=== PATIENT | female | born 1995 ===

== ENCOUNTER 2020-06-05 01:27 | Emergency (ER) | payer OTHER ==
[2020-06-05] MEDS ORDERED: Tetracaine HCl/PF 0.5% 4 ML Bottle EYERT ONE (01:28)
[2020-06-05] MEDS ORDERED: Balanced Salt Solution Ophth Irrig 30 ML Bottle EYERT ONE (01:35)
--- NOTE | 2020-06-05 01:42 | EDM.PDOC ---
ED HPI GENERAL MEDICAL PROBLEM - General Chief Complaint: Eye Problems Stated Complaint: RIGHT EYE FOREIGN OBJECT Time Seen by Provider: 06/05/20 01:28 Source of Information: Reports: Patient History Limitations: Reports: No Limitations - History of Present Illness INITIAL COMMENTS - FREE TEXT/NARRATIVE: Pt with unknown foreign body in right eye Did try to irrigate it out Unknown type of foreign body Occurred about an hour ago Onset: Today, Sudden Duration: Hour(s): Location: Reports: Other (Right eye) Quality: Reports: Stabbing Severity: Moderate Right Eye Pain Score (Numeric/FACES): 10 - Related Data Allergies Allergy/AdvReac Type Severity Reaction Status Date / Time No Known Allergies Allergy Verified 06/05/20 01:35 Home Meds: Home Meds Iron 18 mg PO DAILY 06/05/20 [History] ED ROS GENERAL - Review of Systems Review Of Systems: See Below HEENT: Reports: Eye Pain ED EXAM GENERAL W FULL EYE - Physical Exam Exam: See Below General Appearance: Alert, WD/WN, Moderate Distress Eye Exam: Bilateral Eye: EOMI, PERRL Eyelids: Bilateral: Normal Appearance Conjunctiva & Sclera: Bilateral: Normal Appearance Cornea Exam: Right: Examined with Flourescein (Corneal abrasion at 6 o'clock position) Extraocular Movements: Bilateral: Intact Pupils: Normal Accommodation Pupillary Size: Bilateral: 4 mm Pupillary Reaction: Bilateral: Brisk Course - Vital Signs Last Recorded V/S: Last Vital Signs Temp 99 F 06/05/20 01:27 Pulse 80 06/05/20 01:27 Resp 20 06/05/20 01:27 BP 114/77 06/05/20 01:27 Pulse Ox 100 06/05/20 01:27 - Orders/Labs/Meds Meds: Medications Discontinued Medications Generic Name Dose Route Start Last Admin Trade Name Freq PRN Reason Stop Dose Admin Balanced Salt Solution 5 ml 06/05/20 01:35 Eye Stream Eye Rinse EYERT 06/05/20 01:36 ONETIME ONE Tetracaine HCl 0.5 ml 06/05/20 01:28 Tetracaine 0.5% Steri-Unit Mary EYERT 06/05/20 01:29 ASDIRECTED ONE - Re-Assessments/Exams Free Text/Narrative Re-Assessment/Exam: 06/05/20 01:40 Pt eye seen with eye stain and black light Eye irrigated Rx Gentoptic eye drops 2 drops every 4 hours to right eye for 3 days Departure - Departure Time of Disposition: 01:45 Disposition: Home, Self-Care 01 Clinical Impression: Corneal abrasion Qualifiers: Encounter type: initial encounter Laterality: right Qualified Code(s): S05.01XA - Injury of conjunctiva and corneal abrasion without foreign body, right eye, initial encounter - Discharge Information *PRESCRIPTION DRUG MONITORING PROGRAM REVIEWED*: Not Applicable *COPY OF PRESCRIPTION DRUG MONITORING REPORT IN PATIENT SARAH: Not Applicable Instructions: Corneal Abrasion Additional Instructions: Rx Gent eye drops 2 drops every 4 hours for 3 days Follow up in clinic Sepsis Event Note (ED) - Evaluation Sepsis Screening Result: No Definite Risk - Focused Exam Vital Signs: Vital Signs Temp Pulse Resp BP Pulse Ox 06/05/20 01:27 99 F 80 20 114/77 100
== END 2020-06-05 01:56 | disposition home or self-care (01) ==
LOC: LL.ED 01:27
DX: S05.01XA Injury of conjunctiva and corneal abrasion without foreign body, right eye, initial encounter (principal); X58.XXXA Exposure to other specified factors, initial encounter
CPT/HCPCS: 99283

== ENCOUNTER 2020-09-19 02:33 | Emergency (ER) | payer BC, MEDICAID ==
[2020-09-19 03:23] LABS: CHLORIDE,CL 106 mmol/L (98-107); SODIUM,NA 139 mmol/L (136-145)
--- NOTE | 2020-09-19 03:36 | EDM.PDOC ---
ED HPI GENERAL MEDICAL PROBLEM - General Chief Complaint: General Stated Complaint: DIZZINESS, LIGHTHEADED Time Seen by Provider: 09/19/20 02:45 Source of Information: Reports: Patient History Limitations: Reports: No Limitations - History of Present Illness INITIAL COMMENTS - FREE TEXT/NARRATIVE: Pt complains of being lightheaded and dizzy earlier tonight at work No chest pain No syncope Symptoms resolved spontaneously Onset: Today, Sudden Duration: Resolved Prior to Arrival Location: Reports: Generalized - Related Data Allergies Allergy/AdvReac Type Severity Reaction Status Date / Time No Known Allergies Allergy Verified 06/05/20 01:35 Home Meds: Home Meds Ferrous Sulfate 1 tab PO BID 09/19/20 [History] ED ROS GENERAL - Review of Systems Review Of Systems: See Below Constitutional: Reports: No Symptoms HEENT: Reports: No Symptoms Respiratory: Reports: No Symptoms Cardiovascular: Reports: No Symptoms GI/Abdominal: Reports: No Symptoms Musculoskeletal: Reports: No Symptoms Skin: Reports: No Symptoms Neurological: Reports: Dizziness, Other (Lightheaded) Psychiatric: Reports: No Symptoms ED EXAM, GENERAL - Physical Exam Exam: See Below Exam Limited By: No Limitations General Appearance: Alert, WD/WN, No Apparent Distress Eye Exam: Bilateral Eye: EOMI, PERRL Throat/Mouth: Normal Oropharynx Neck: Supple Respiratory/Chest: Lungs Clear Cardiovascular: Regular Rate, Rhythm GI/Abdominal: Soft, Non-Tender Extremities: Normal Inspection Neurological: Alert, Oriented, Normal Cognition, Normal Gait, No Motor/Sensory Deficits Psychiatric: Normal Affect, Normal Mood Course - Vital Signs Last Recorded V/S: Last Vital Signs Temp 98.6 F 09/19/20 02:37 Pulse 63 09/19/20 02:37 Resp 14 09/19/20 02:37 BP 119/59 L 09/19/20 02:37 Pulse Ox 100 09/19/20 02:37 - Orders/Labs/Meds Labs: Laboratory Tests 09/19/20 09/19/20 Range/Units 03:00 03:00 WBC 5.2 (4.0-10.2) K/uL RBC 3.66 L (3.77-5.09) M/uL Hgb 9.3 L (11.7-15.5) g/dL Hct 28.9 L (34.0-46.0) % MCV 79.0 L (84.0-98.0) fL MCH 25.4 L (28.2-33.3) pg MCHC 32.2 (31.7-36.0) g/dL RDW 17.1 H (11.2-14.1) % Plt Count 233 (150-350) K/uL Neut % (Auto) 40.4 L (45.0-80.0) % Lymph % (Auto) 46.6 (10.0-50.0) % Ellis % (Auto) 10.7 (2.0-14.0) % Eos % (Auto) 1.9 (0.0-5.0) % Baso % (Auto) 0.4 (0.0-2.0) % Neut # (Auto) 2.12 (1.40-7.00) K/uL Lymph # (Auto) 2.44 (0.50-3.50) K/uL Ellis # (Auto) 0.56 (0.00-1.00) K/uL Eos # (Auto) 0.10 (0.00-0.50) K/uL Baso # (Auto) 0.02 (0.00-0.20) K/uL Sodium 139 (136-145) mmol/L Potassium 3.8 (3.5-5.1) mmol/L Chloride 106 (98-107) mmol/L Carbon Dioxide 22.7 (21.0-32.0) mmol/L BUN 13 (7-18) mg/dL Creatinine 0.58 (0.51-1.17) mg/dL Est Cr Clr Drug Dosing 130.27 mL/min Estimated GFR (MDRD) > 60 mL/min Glucose 90 (74-106) mg/dL Calcium 8.6 (8.5-10.1) mg/dL - Re-Assessments/Exams Free Text/Narrative Re-Assessment/Exam: 09/19/20 03:35 See lab Pt stable in ER Departure - Departure Time of Disposition: 03:45 Disposition: Home, Self-Care 01 Clinical Impression: Dizziness - Discharge Information *PRESCRIPTION DRUG MONITORING PROGRAM REVIEWED*: Not Applicable *COPY OF PRESCRIPTION DRUG MONITORING REPORT IN PATIENT SARAH: Not Applicable Instructions: Dizziness, [id number] Referrals: PCP,None [Primary Care Provider] - Additional Instructions: Follow up in clinic Sepsis Event Note (ED) - Evaluation Sepsis Screening Result: No Definite Risk - Focused Exam Vital Signs: Vital Signs Temp Pulse Resp BP Pulse Ox 09/19/20 02:37 98.6 F 63 14 119/59 L 100
== END 2020-09-19 04:25 | disposition home or self-care (01) ==
LOC: LL.ED 02:33
DX: R42 Dizziness and giddiness (principal)
CPT/HCPCS: 36415; 80048; 85025; 99283; 99284